=== PATIENT | male | born 1990 ===

== ENCOUNTER 2018-09-12 01:19 | Emergency (ER) | payer SELFPAY ==
[2018-09-12 01:20] VITALS: BMI 29.2
[2018-09-12 01:36] VITALS: RESP 18
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
[2018-09-12 03:22] LABS: PH,URINE 6.5 (4.7-8.0); URINE BILIRUBIN NEGATIVE (NEGATIVE); URINE BLOOD NEGATIVE (NEGATIVE); URINE GLUCOSE (UA) NEGATIVE (NEGATIVE); URINE LEUKOCYTE ESTERASE NEGATIVE Leu/uL (NEGATIVE); URINE PROTEIN NEGATIVE mg/dL (<30 mg/dL); URINE UROBILINOGEN 0.2 E.U./dL (<1 E.U./dL)
[2018-09-12 03:29] LABS: URINE APPEARANCE CLEAR (CLEAR); URINE COLOR YELLOW (YELLOW)
[2018-09-12 06:09] VITALS: BP 125/78; PULSE 72; TEMP 98.1; O2SAT 98
--- NOTE | 2018-09-12 11:09 | RAD ---
Date of service: 09/12/2018 PROCEDURE: Radiographs of the Lumbar Spine. HISTORY: lower back pain COMPARISON: No prior. FINDINGS: BONES: Normal alignment. No listhesis. No fracture. DISC SPACES: Unremarkable. OTHER FINDINGS: None. IMPRESSION: Unremarkable radiographs of the lumbar spine.
== END 2018-09-12 06:09 | disposition home or self-care (01) ==
LOC: ED 01:19
DX: M54.5 Low back pain (principal); M62.838 Other muscle spasm
CPT/HCPCS: 72110; 81003; 96372; 99282; J1885